=== PATIENT | female | born 1955 ===

== ENCOUNTER → 2024-06-19 | Outpatient (CLI) | payer MEDICARE, OTHER ==
--- NOTE | 2024-06-21 11:32 | NM ---
EXAMINATION TYPE: NM DatScan Brain SPECT DATE OF EXAM: 06/19/2024 COMPARISON: NONE CLINICAL INDICATION: Female, 69 years old with history of R29.6,R53.1,R13.19; recurrent falls and gen eralized weakness with other dysphagia. TECHNIQUE: 10 drops of Lugol's solution was administered 1 hour prior to injection as a thyroid bloc willy agent. After the administration of 4.48 mCi I-123 Ioflupane DaTscan. Images obtained 3 hours p ost injection. SPECT images of the brain were acquired with axial and coronal reconstructions. FINDINGS: The DaTSCAN demonstrates normal uptake of tracer throughout the striata. Consequently there is no evidence of loss of the pre-synaptic dopaminergic terminals on this investig ation. IMPRESSION: Normal study. [facility], , 06/21/2024 11:29 AM
== END | disposition home or self-care (01) ==
LOC: RADNMMAIN 10:34 → EEVIPCON 10:34
PROVIDERS: ATTEND Psychiatry & Neurology Neurology
DX: R29.6 Repeated falls (principal); R53.1 Weakness; R13.19 Other dysphagia
CPT/HCPCS: 78803; A9584